=== PATIENT | female | born 1965 | race Caucasian/White ===

== ENCOUNTER 2016-11-07 23:35 | Observation (INO) | payer OTHER ==
[~2016-11-07] VITALS: Ht 165.1 cm; Wt 84.5 kg
--- NOTE | ~2016-11-07 | ECHO ---
Transthoracic Echocardiography Report (TTE) Demographics Patient Name ROBBIE LÓPEZ Date of Study 11/08/2016 Patient Number [id number] Visit Number [id number] Date of 1965 Room Number G6324 Gender Female Number Age 50 year(s) Referring Rosmery Waters Senior Loan Processor Freda RVT, RDCS Physician ROC Davis Physician Interpreting Efstratiou Panayotis A Panel Machine Operator Physician Supervising Ordering Efstratiou Panayotis A MD/MLP Physician MD Nurse Stress Title I Teacher Conclusions Contractility Score Summary Normal Left Ventricular contractility was noted. Summary The estimated left ventricular ejection fraction is 50%. Mild to moderate concentric left ventricular hypertrophy. Diastolic assessment reveals Grade I diastolic dysfunction. The right atrium is mildly dilated. Mild mitral regurgitation by color Doppler Mildly dilated right ventricle. Procedure Type of Study TTE procedure:2D Echocardiogram, M-Mode, Doppler , Color Doppler. Procedure Date Date: 11/08/2016 Start: 12:12 PM Study Location: Inpatient Portable Technical Quality: Adequate visualization Indications:Unstable angina. Appropriate Use Criteria: 9 Patient Status: Routine HR: 84 bpm BP: 123/63 mmHg M-Mode/2D Measurements LV Diastolic Dimension: 4.35 cm LV Systolic Dimension: 3.13 cm LV Septum Diastolic: 1.56 cm LV PW Diastolic: 1.26 cm AO Root Dimension: 2.8 cm Cardiac Output: 4.02 l/min AV Cusp Separation: 1.8 cm RV Diastolic Dimension: 2.5 cm LA volume: 21 ml LVOT: 1.8 cm RV Base: 2.4 cm LVOT VTI: 18.8 cm RV Mid: 2.98 cm LV Stroke volume: 47.82 ml TAPSE: 2.71 cm TDI-S': 12.2 cm/s Doppler Measurements AV Peak Velocity: 1.25 m/s MV Peak E-Wave: 0.6 m/s AV Peak Gradient: 6.25 mmHg MV Peak A-Wave: 1.02 m/s AV Mean Gradient: 4 mmHg MV E/A Ratio: 0.59 LVOT Peak Velocity: 0.9 m/s MV P1/2t: 53 msec TR Gradient:13.25 mmHg PV Peak Velocity: 0.7 m/s Estimated RAP:3 mmHg PV Peak Gradient: 1.95 mmHg Estimated RVSP: 16 mmHg Estimated PASP: 16.25 mmHg E' Septal Velocity: 0.06 m/s A' Septal Velocity: 0.13 m/s E' Lateral Velocity: 0.05 m/s A' Lateral Velocity: 0.15 m/s Findings Left Ventricle Mild to moderate concentric left ventricular hypertrophy. Diastolic assessment reveals Grade I diastolic dysfunction. Right Ventricle Mildly dilated right ventricle. Low normal right ventricular systolic performance. Left Atrium Normal left atrial size. Right Atrium The right atrium is mildly dilated. Mitral Valve Mild mitral regurgitation by color Doppler. Aortic Valve There is trivial aortic regurgitation by color Doppler. Tricuspid Valve Trivial tricuspid regurgitation by color Doppler. Pulmonic Valve Normal pulmonic valve structure and function. Pericardial Effusion Trivial pericardial effusion. Pleural Effusion No evidence of pleural effusion. Contractility Score LV regional wall motion:(0-Non visualized 1-Normal 2-Hypokinesis 3-Akinesis 4-Dyskinesis 5-Aneurysm) Signature dtt: Karley Echavarria dtd: 11/08/16 1212 Physician Self Edit
--- NOTE | ~2016-11-07 | HP ---
PATIENT'S NAME: ROBBIE LÓPEZ [facility] AGE: 50 Y [address] ROOM: [place] [address] LOCATION: GPCU ADMIT DATE: 11/08/2016 History & Physical DISCHARGE DATE: FAMILY PHYSICIAN: PHYSICIAN, NO ATTENDING PHYSICIAN: Angi SALAZAR DATE OF SERVICE: CHIEF COMPLAINT: Chest pain. HISTORY OF PRESENT ILLNESS: The patient is a 50-year-old female with no known history of coronary artery disease, obstructive sleep apnea, diabetes mellitus type 2, and strong family history of coronary artery disease, who presents here with chest pain. The patient reports that around 6:30 p.m., she started feeling left-sided chest pain. However, she reports that chest pain got worse as the day went through. The patient was at work when she started to experience worsening of chest pain. She reports the chest pain as pressure like radiating to the jaw and her left upper extremity and rated the pain 8/10. Quality of chest pain is pressure-like. Also chest pain was associated with shortness of breath and diaphoresis. The patient also reports of some pleuritic chest pain associated with chest pain. The patient reports that chest pain was constant without elevating and exacerbating factor. The patient reports that she has had similar episode around last year and was taken to [place] and had a coronary angiogram. She reports that she had a disease of arteries, which she claimed was 70%. No intervention was made. Upon further investigation, she was unable to answer further followup questions. MEDICAL HISTORY: 1. Diabetes mellitus type 2. 2. CAD. 3. Obstructive sleep apnea. 4. Diabetic polyneuropathy. SURGICAL HISTORY: 1. Back surgery. 2. Hysterectomy. 3. Appendicectomy. 4. Cholecystectomy. FAMILY HISTORY: Mom had history of coronary artery disease in her early 60s. Dad from [facility] 50 Y [address] ROOM: [place] [address] LOCATION: GPCU ADMIT DATE: 11/08/2016 History & Physical DISCHARGE DATE: FAMILY PHYSICIAN: PHYSICIAN, NO ATTENDING PHYSICIAN: Angi SALAZAR heart attack in his 50s. Sister also has a history of coronary artery disease with bypass. SOCIAL HISTORY: The patient is . Does not have kid. 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 She denies of smoking. She reports occasional drink of wine. MEDICATIONS: Currently being reconciled. REVIEW OF SYSTEMS: All systems have been reviewed and are negative except for what I mentioned in the HPI. PHYSICAL EXAMINATION: VITAL SIGNS: Afebrile, blood pressure 136/67, pulse of 99, respiratory rate of 20, and saturating 97% on room air. GENERAL APPEARANCE: The patient is alert and awake, in no acute distress, lying on the bed. HEAD: Normocephalic, atraumatic. EYES: Extraocular muscle intact. NOSE: No nasal discharge. MOUTH: Moist oral mucosa. CHEST: Clear to auscultation bilaterally. HEART: Regular rate and rhythm. No murmurs, rubs, or gallops heard. NECK: No JVD. No pitting edema. ABDOMEN: Soft, nontender, and nondistended. Bowel sounds present. MUSCULOSKELETAL: Range of motion intact. No obvious joint effusion noted. TERADATA SOLUTION ARCHITECT: The patient is alert and oriented x3. Motor and sensory grossly intact. SKIN: Warm to touch. LABORATORY DATA: Troponin x1 negative. White blood cell 6.7, hemoglobin 14.3, and platelet of 217. Blood glucose of 403, BUN of 15, creatinine of 1.2, potassium of 4.2, CO2 of 23. INR of 0.94. EKG shows right bundle-branch block with no obvious ischemic changes. ASSESSMENT AND PLAN: 1. Unstable angina. The patient is with a known history of coronary artery disease without intervention, who presents here with somewhat typical PATIENT'S NAME: ROBBIE LÓPEZ [facility] AGE: 50 Y [address] ROOM: [id number] [place] [id number] [facility] AD[facility] DATE: 11/08/2016 History & Physical DISCHARGE DATE: FAMILY PHYSICIAN: PHYSICIAN, NO ATTENDING PHYSICIAN: Angi SALAZAR chest pain in constant nature. The patient received full dose aspirin via EMS. We will continue aspirin 81 mg. The patient is tachycardic. We will start beta-linda, Lopressor 25 mg b.i.d. Also start heparin drip. We will keep the patient n.p.o. sips with medications. Repeat cardiac enzymes and acquire a cardiology consult in the morning. 2. Acute kidney injury. The patient with baseline creatinine of 0.7, who presents here with creatinine of 1.2. Etiology most likely secondary to uncontrolled diabetes mellitus type 2. We will give the patient L bolus and start 100 mL an hour IV fluid. We will check CMS in the morning. 3. Diabetes mellitus type 2, uncontrolled. The patient is on Lantus 70 units b.i.d. We will change that to 50 units b.i.d. as the patient is n.p.o. We will change back to home regiment when the patient is not n.p.o. anymore. We will also add sliding scale. 4. Diabetic neuropathy. Continue medication. 5. Obstructive sleep apnea. Continue CPAP during stay. Greater than 35 minutes was spent on patient care. Assessment and plan was discussed with the patient. The patient's question was answered with satisfaction. We will admit the patient as an inpatient for unstable angina. MD MARISELA QUINTERO/samantha /[id number] D: T: 821 HISTORY & PHYSICAL
--- NOTE | ~2016-11-07 | CON ---
PATIENT'S NAME: ROBBIE LÓPEZ [facility] AGE: 50 Y [address] ROOM: [address] [place], [place] [address] LOCATION: GPCU ADMIT DATE: 11/08/2016 Consultation DISCHARGE DATE: FAMILY PHYSICIAN: Riley Botello ATTENDING PHYSICIAN: Angi SALAZAR DATE OF CONSULTATION: 11/08/2016 REFERRING PHYSICIAN: Luis Miguel Bingham MD HISTORY OF PRESENT ILLNESS: This is a 50-year-old woman admitted with chest pain whom I am asked to see in consultation. The patient says that the pain has been going on for several days, but became particularly severe yesterday. She also experienced severe dyspnea on exertion. So, she came to the hospital. Evaluation showed that there was no ST depression or elevation. Troponins were negative, and D-dimer was normal. She was placed on heparin and overnight did well. She actually asks today to be discharged home. She describes the pain as being precordial with radiation down the left arm with numbness of forefingers as well as radiation to the back. It was not relieved with nitroglycerin. It is not worse with physical exertion. There is no history of syncope, presyncope, or palpitations. PAST MEDICAL HISTORY: 1. She had chest pain about a year ago. She was evaluated in [place], and then she has had coronary angiogram at [place] in [place]. We have the report that indicates 2 areas of 20% stenosis of the proximal and mid LAD, ejection fraction of 60%, and mildly elevated LVEDP. She also had, around that time, ankle brachial indices which were normal, and carotid ultrasound that showed no significant stenosis. Her echocardiogram showed normal ejection fraction and mild diastolic dysfunction. 2. The patient has diabetes for several years which apparently is very poorly controlled because she often has glucose measurements in the 300 range. She tells me that she was recently hospitalized in [place] with hyperglycemia and some mental status changes. She tells me that the police went to her house and brought her medications because they suspected a suicide attempt, although the patient denies any intent to harm herself. She admits that she is depressed, and the trigger was the loss of her mother 3 years ago. REVIEW OF SYSTEMS: She says she lost 60 to 70 pounds. The weight recorded about a year ago is not significantly different from her weight during this admission. Review of systems also shows that she has indigestion and says her eruptions smell of sulfur dioxide. She is not aware of a diagnosis of gastroparesis. She has been told that she has polyneuropathy. She also has obstructive sleep apnea. PATIENT'S NAME: ROBBIE LÓPEZ [facility] AGE: 50 Y [address] [place] [facility] [place] [address] LOCATION: GPCU ADMIT DATE: 11/08/2016 Consultation DISCHARGE DATE: FAMILY PHYSICIAN: Riley Botello ATTENDING PHYSICIAN: Angi SALAZAR Remaining systems are negative. PAST SURGICAL HISTORY: She mentions 9 back surgeries, appendectomy, cholecystectomy, and hysterectomy. FAMILY HISTORY: Her mother had CABG in her 70s and at age 81. Her father from myocardial infarction at 58 and also had coronary artery disease. One aunt had Alzheimer's. 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 Walks on the job, but does not formally exercise. She does not use tobacco, alcohol, or illegal drugs. PHYSICAL EXAMINATION: GENERAL: A pleasant, middle-aged woman. She is 5 feet 5 inches and weighs 83.5 kg. She is alert and oriented. VITAL SIGNS: Blood pressure 114/66, pulse 91, and temperature 98.4. SKIN: Warm and dry. HEAD: Normocephalic and atraumatic. She is edentulous. NECK: Supple. There are no carotid bruits. No jugular venous distention. No thyromegaly. LUNGS: Clear to auscultation. HEART: Regular with a fourth heart sound. ABDOMEN: Obese and nontender. LOWER EXTREMITIES: No peripheral edema, 2+ dorsalis pedis pulses. DIAGNOSTIC STUDIES: Sinus rhythm, right bundle-branch block, nonspecific T changes. Complete metabolic screen: Glucose is 260 this morning, BUN 14, and creatinine 0.8. CK-MB less than 0.5. Troponin I less than 0.04 on 3 samples. Initial GFR was 52, but improved with hydration. Hemoglobin A1c is 13.5%. IMPRESSION: 1. Atypical chest pain. I doubt that her coronary artery disease, even badly controlled, progressed that much in one year. The pain could be from microvascular dysfunction because of her uncontrolled diabetes and probably untreated dyslipidemia. 2. Poorly controlled diabetes. 3. Neuropathy. 4. Possible gastroparesis. 5. Obesity. 6. Obstructive sleep apnea. PATIENT'S NAME: ROBBIE LÓPEZ [facility] AGE: 50 Y [address] ROOM: [place] [address] [facility] ADMIT DATE: 11/08/2016 Consultation DISCHARGE DATE: FAMILY PHYSICIAN: Riley Botello ATTENDING PHYSICIAN: Angi SALAZAR PLAN: I will measure a proBNP and lipid panel. I will stop the heparin, stopping metoprolol. Start the patient on carvedilol 6.25 twice a day, atorvastatin 40. Continue the aspirin. Her outpatient medications which I did not mention are citalopram 40 mg daily, clonazepam 0.5 mg at bedtime, aspirin 81 mg daily, multivitamin once a day, cyclobenzaprine. 10 mg 3 times a day as needed, insulin glargine 70 units, and insulin aspart per sliding scale. I will repeat her echocardiogram. The patient needs to have better control of her diabetes. Thank you for allowing me to participate in the care of your patient. LUIS MIGUEL BINGHAM MD PE/samantha /[id number] d: 11/08/16 1403 t: 11/09/16 1714, CONSULTATION REPORT
--- NOTE | ~2016-11-07 | DS ---
PATIENT'S NAME: ROBBIE LÓPEZ [facility] AGE: 50 Y [address] ROOM: G6324 [place], [place] [address] LOCATION: GPCU ADMIT DATE: 11/08/2016 Discharge Summary DISCHARGE DATE: 11/10/2016 FAMILY PHYSICIAN: Riley Botello ATTENDING PHYSICIAN: Angi Lowe DISCHARGE DIAGNOSES: 1. Chest pain, musculoskeletal. 2. Dysphagia. 3. Diabetes mellitus, type 2, poorly-controlled. 4. Constipation. 5. Acute kidney injury, resolved. 6. Diabetic neuropathy. 7. Obstructive sleep apnea, CPAP. HOSPITAL COURSE: Please refer to admitting history and physical as dictated by Dr. Lowe. Briefly, the patient was admitted to [facility] with a diagnosis of unstable angina. She was started on IV fluids. Cardiac enzymes were obtained, which were all within normal limits. Cardiology consult was obtained. She was started on a heparin drip per protocol. Insulin was managed per sliding scale insulin as well as her long-acting Levemir, which was increased to 50 units subcu twice daily. Cardiology felt as though she could have probable microvascular dysfunction. She was started on Coreg, which was increased to 12.5 mg p.o. daily. She was started on atorvastatin 40 mg p.o. daily. She was found to have a total cholesterol of 286, triglycerides 1129, HDL 35. Pro-BNP was less than 30. She was also started on Lovaza 2 g p.o. b.i.d. All of her troponins were negative. D- dimer was negative. Diabetic Ed followed the patient throughout her stay. Her hemoglobin A1c was found to be 13.5. The patient also stated she had difficulty swallowing. Esophagram showed mildly disordered esophageal motility, no difficulty initiating swallow, and no structural abnormalities. A modified barium swallow was subsequently obtained, which showed no aspiration or penetration with thin liquid barium, nectar, applesauce, mixed fruits, or pudding. It was recommended that she continue speech therapy as an outpatient. The patient had constipation and she was started on MiraLAX p.o. daily. Her dysphagia is likely secondary to oropharyngeal versus esophageal dysmotility. It was felt as though she may benefit from an outpatient gastric emptying study as gastroparesis could likely be present, secondary to her poorly-controlled diabetes mellitus. We will let the patient followup with her primary care provider for further determinations of gastric emptying study. On the day of discharge, the patient's vital signs were stable, she still had minor chest discomfort, which did increase with palpation of her chest. Blood sugars were 190 fasting. She did have a bowel movement. She did have acute kidney injury upon admit and prior to discharge this had subsequently resolved. On 11/10/2016, it was felt as though she was stable to PATIENT'S NAME: ROBBIE LÓPEZ [facility] AGE: 50 Y [address] ROOM: [address] [place], [place] [address] LOCATION: GPCU ADMIT DATE: 11/08/2016 Discharge Summary DISCHARGE DATE: 11/10/2016 FAMILY PHYSICIAN: Riley Botello ATTENDING PHYSICIAN: Angi Lowe be discharged home and follow up with Jl Botello in 3 days. LABORATORY DATA: Sodium remained within normal limits, potassium 4.2, calcium 8.9, BUN 14 to 15, creatinine 0.7 to 1.2, alk phos 88, AST 17, ALT 29, GFR 52 on admit, greater than 90 prior to discharge, total cholesterol 286, triglycerides 1129, HDL 35, CK-MB less than 0.5, troponin after 5 sets all remained less than 0.040. Hemoglobin A1c 13.5. WBC 6.7, hematocrit 39.6, hemoglobin 14.3, and platelets 217. Echocardiogram showed an EF of 50%, grade 1 diastolic dysfunction, right atrium mildly dilated, mild mitral regurg, and mildly dilated right ventricle. DISCHARGE INSTRUCTIONS: 1. The patient will be discharged to home. 2. Diet: Diabetic. 3. Activity: As tolerated. 4. Followup appointment with Jl Botello in 3 days. 5. [facility] diet[facility] in 2 weeks. 6. Record blood sugars and blood pressures and take to appointment with primary care provider. DISCHARGE MEDICATIONS: 1. Aspirin 81 mg p.o. daily. 2. Lipitor 40 mg p.o. daily. 3. Coreg 12.5 mg p.o. twice daily. 4. Celexa 40 mg p.o. daily. 5. Klonopin 0.5 mg p.o. q.h.s. 6. Home insulin sliding scale. 7. Lantus 50 units subcu twice daily. 8. Fish oil 2000 mg p.o. twice daily. 9. Protonix 40 mg p.o. daily. 10. MiraLAX 17 g p.o. daily. 11. Tylenol 650 mg p.o. every 6 hours as needed for pain. 12. Flexeril 10 mg p.o. t.i.d. 13. Multivitamin 1 tablet p.o. daily. Thank you for allowing us to participate in the care of this patient as she has been hospitalized at [facility]. DAVID BENNETT APRN FOR MD CACHORRO TONEY/samantha PATIENT'S NAME: ROBBIE LÓPEZ [facility] AGE: 50 Y [address] ROOM: [place] [address] [facility] AD[facility] DATE: 11/08/2016 Discharge Summary DISCHARGE DATE: 11/10/2016 FAMILY PHYSICIAN: Riley Botello ATTENDING PHYSICIAN: Angi Lowe /[id number] d: 11/11/16 0203 t: 11/13/16 1434, DISCHARGE SUMMARY
--- NOTE | ~2016-11-07 | CON ---
PATIENT'S NAME: ROBBIE LÓPEZ [facility] AGE: 50 Y [address] ROOM: [place] [address] LOCATION: GPCU ADMIT DATE: 11/08/2016 Consultation DISCHARGE DATE: FAMILY PHYSICIAN: Riley Botello ATTENDING PHYSICIAN: Angi SALAZAR DATE OF CONSULTATION: 11/09/2016 REFERRING PHYSICIAN: Karley Echavarria MD REASON FOR CONSULTATION: Dysphagia. HISTORY OF PRESENT ILLNESS: This is a very pleasant 50-year-old female with known coronary artery disease, obstructive sleep apnea, diabetes mellitus type 2. The patient presented to [facility] with chest pain. She states at that time, it was located on the left side of the chest as it progressively worsened throughout the day. She was evaluated per Cardiology and thought this was atypical chest pain, not due to coronary artery disease. We were asked to see in consultation as the patient continued with complaints of longstanding dysphagia. The patient was seen and examined. She does state that she has had a long- standing history of dysphagia as well as known esophageal stricture dilated at her previous endoscopy last year. She does state that she has dysphagia to specifically solids or liquids. She did also undergo upper endoscopy and colonoscopy completed in [place], as these records will be requested to be sent to us. The patient denies any acute chest pain, chest pressure, shortness of breath, fever, or chills. PAST MEDICAL HISTORY: Diabetes mellitus type 2, CAD, obstructive sleep apnea, diabetic polyneuropathy. PAST SURGICAL HISTORY: Back surgery, hysterectomy, appendectomy, cholecystectomy, upper endoscopy, and colonoscopy in [place] approximately a year ago. FAMILY HISTORY: The patient's mother had coronary artery disease. The patient's father had heart attack in his 50s. The patient's sister also has coronary artery disease with bypass. She denies any known gastrointestinal diseases. SOCIAL HISTORY: The patient is . She does not have any kids. 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 ROOM: [place] [address] LOCATION: GPCU ADMIT DATE: 11/08/2016 Consultation DISCHARGE DATE: FAMILY PHYSICIAN: Riley Botello ATTENDING PHYSICIAN: Angi SALAZAR intellectually disabled kids. Denies any smoking. She does admit to occasional drink of wine. ALLERGIES: PENICILLIN, NIACIN, MORPHINE, CODEINE, TRIAMCINOLONE, ERYTHROMYCIN BASE, CLARITHROMYCIN, GABAPENTIN, CEFTRIAXONE, VANCOMYCIN, LEVOFLOXACIN, AND LATEX. CURRENT MEDICATIONS: Please refer to the medication administration record. REVIEW OF SYSTEMS: All-point review of systems was completed. All were negative except for those identified in the history of present illness. PHYSICAL EXAMINATION: GENERAL: A pleasant 50-year-old female, lying in bed, who appears to be in no acute distress. VITAL SIGNS: Temperature 98.3, pulse of 80, respirations 16, blood pressure 133/76, and oxygen saturation is 96% on room air. SKIN: Colon, warm, dry. No jaundice. HEENT: Head is normocephalic and atraumatic. Pupils are equal, round, and reactive to light. Sclerae are clear and nonicteric. Oral mucosa is pink and moist. No thyromegaly. NECK: Soft and supple. CARDIOVASCULAR: Regular. Normal S1, S2. RESPIRATORY: Respirations are even and unlabored. LUNGS: Clear to auscultation. ABDOMEN: Soft, round, nontender, and nondistended. Bowel sounds are positive x4 quadrants. MUSCULOSKELETAL: No muscle weakness or atrophy. EXTREMITIES: No clubbing, cyanosis, or edema. NEUROLOGIC: Grossly nonfocal. LABORATORY DATA AND DIAGNOSTICS: Chemistry panel includes a glucose of 235, BUN of 14, creatinine is 0.7. Sodium 140, potassium of 4.0, chloride of 108, CO2 of 24. Liver function tests are within normal limits. CBC includes white blood cell count of 6.7, hemoglobin of 14.3, hematocrit of 39.6, and platelets of 217. Cardiac enzymes have all been within normal limits. On admission, pro-time was 9.9, INR was 0.94, PTT of 22. ASSESSMENT AND PLAN: Again, this is a very pleasant, 50-year-old female, who was admitted with acute atypical chest pain, noncardiac related. We were asked to see in consultation for dysphagia, as well as possible motility issues. The patient PATIENT'S NAME: ROBBIE LÓPEZ [facility] AGE: 50 Y [address] ROOM: [address] [address] LOCATION: [facility] ADMIT DATE: 11/08/2016 Consultation DISCHARGE DATE: FAMILY PHYSICIAN: Riley Botello ATTENDING PHYSICIAN: Angi SALAZAR recently underwent an upper endoscopy as well. We will request for these records to be sent to us. The patient will also undergo a modified barium swallow and esophagram to rule out achalasia. The patient does complain of some constipation. The patient was recently started on MiraLAX as well as given milk of magnesia for hopeful relief of the patient's constipation. Further recommendations will be given status post modified barium swallow and esophagram. Thank you for this consult. MICHAEL JANE APRN FOR MD DAYNE BLOCK/samantha /[id number] d: 11/10/16821 t: 11/14/16 0741, CONSULTATION REPORT
--- NOTE | ~2016-11-07 | ER ---
PATIENT'S NAME: ROBBIE LÓPEZ [facility] AGE: 50 Y [address] ROOM: [place] [address] LOCATION: GPCU ADMIT DATE: 11/08/2016 ER/Outpatient Report DISCHARGE DATE: FAMILY PHYSICIAN: Riley Botello ATTENDING PHYSICIAN: Angi SALAZAR TIME OF ADMIT: 2335 hours. TIME SEEN: 2355 hours. HISTORY OF PRESENT ILLNESS: This is a 50-year-old female. She was previously reasonably healthy. She is in with complaint of chest pain and back pain. She describes it as a pressure- type pain. It began while she was driving to work several hours ago. It has been continuous since its onset. She arrived here by ambulance. She was given one sublingual nitroglycerin en route, which caused a headache, but did not improve her chest pain. PAST MEDICAL HISTORY: Significant for sleep apnea and insulin-dependent diabetes. CURRENT MEDICATIONS: Please see list. REVIEW OF SYSTEMS: Otherwise negative. SOCIAL HISTORY: She is a nonsmoker. PHYSICAL EXAMINATION: GENERAL: An alert, anxious-appearing female, in no acute distress. She appeared to be quite uncomfortable. SKIN: Warm and dry. Color was normal. HEAD, EARS, EYES, NOSE, AND THROAT: Normal. NECK: Supple. HEART: Regular rate and rhythm. There is no murmur. LUNGS: Clear. Breath sounds are equal. ABDOMEN: Soft and nontender. EXTREMITIES: Normal. NEUROLOGIC: Normal. EKG: PATIENT'S NAME: ROBBIE LÓPEZ [facility] AGE: 50 Y [address] ROOM: [place] [address] LOCATION: GPCU ADMIT DATE: 11/08/2016 ER/Outpatient Report DISCHARGE DATE: FAMILY PHYSICIAN: Riley Botello ATTENDING PHYSICIAN: Angi SALAZAR EKG revealed a right bundle-branch block with no acute ST or T-wave changes. There is no previous EKG for comparison. LABORATORY DATA AND X-RAYS: CBC and comprehensive metabolic profile was notable for markedly elevated glucose of greater than 400. Cardiac enzymes were negative. Chest x-ray was negative. ASSESSMENT: Chest pain of uncertain etiology. PLAN: Admit for serial enzymes. Cath report from heart cath performed 1 year ago in [place]. MD CLINTON LEMON/modl /[id number] d: 11/08/16724 t: 11/09/16 1754, OUTPATIENT REPORT
[2016-11-08 00:18] LABS: BASOPHIL # 0.1 K/uL (0.0-0.2); BASOPHIL % 0.9 %; EOSINOPHIL # 0.2 K/uL (0.0-0.5); HEMATOCRIT 39.6 % (33.0-46.0); HEMOGLOBIN 14.3 g/dL (10.0-15.0); IMMATURE GRANULOCYTE # 0.1 K/uL (0.0-0.3); IMMATURE GRANULOCYTE % 0.7 %; LYMPHOCYTE # 2.7 K/uL (0.8-4.0); LYMPHOCYTE % 40.3 %; MCHC 36.1 gm/dL (32.0-36.5); MCV 83.2 fl (83.0-98.0); MONOCYTE # 0.5 K/uL (0.0-1.0); MONOCYTE % 7.9 %; MPV 9.6 fl (9.4-12.4); NEUTROPHIL # (ANC) 3.1 K/uL (1.8-7.8); NEUTROPHIL % 47.2 %; NRBC % 0 /100WBC (0-0.00); PLATELET COUNT 217 K/uL (150-450); RBC 4.76 M/uL (3.50-5.50); RDW-CV 11.6 % (11.9-14.6); WBC 6.7 K/uL (4.0-11.0)
[2016-11-08 00:25] LABS: INR - (THERAPEUTIC) 0.94 (0.92-1.07); PROTIME 9.9 SECONDS (9.8-11.4); PTT 22 SECONDS (25-32)
[2016-11-08 00:36] LABS: ALBUMIN 3.6 gm/dL (3.5-5.0); ALK PHOS 94 IU/L (33-138); ALT 30 IU/L (12-78); ANION GAP 14.2 (10.0-19.0); AST 20 IU/L (10-40); BLOOD UREA NITROGEN 15 mg/dL (6-24); CALCIUM 8.9 mg/dL (8.5-10.5); CHLORIDE 102 mMol/L (96-110); CO2 23 mMol/L (22-32); CPK 52 IU/L (21-215); CREATININE 1.2 mg/dL (0.5-1.1); POTASSIUM 4.2 mMol/L (3.7-5.1); SODIUM 135 mMol/L (135-145); TOTAL BILIRUBIN 0.5 mg/dL (0.0-1.5); TOTAL PROTEIN 7.4 g/dL (6.0-8.4)
[2016-11-08 02:25] LABS: CPK 50 IU/L (21-215)
[2016-11-08] MEDS ORDERED: CELEXA40 MG PO (02:54)
[2016-11-08] MEDS ORDERED: ASPIRIN LO-DOSE81 MG PO (02:55)
[2016-11-08] MEDS ORDERED: KLONOPIN0.5 MG PO (02:55)
[2016-11-08] MEDS ORDERED: MULTIVITAMINS1 EAC2 PO (02:56)
[2016-11-08] MEDS ORDERED: LANTUS (IN100 UNIT/M SUB-Q (02:58)
[2016-11-08] MEDS ORDERED: FLEXERIL10 MG PO (02:58)
[2016-11-08] MEDS ORDERED: NOVOLOG100 UNIT/M SUB-Q (03:00)
--- NOTE | 2016-11-08 04:23 | NUR ---
Pt arrived at work and began having midsternal chest pain that was radiating to her L) arm along with shortness of breath and nausea. Her co-workers called EMS and she was brought to the ER. EKG, enzymes and CT per PE protocol were all negative. BG was 400 at the time. Pt admitted for observation, cardiology consulted.
--- NOTE | 2016-11-08 05:04 | NUR ---
Significant events: Pt A/Ox3. VSS, on RA. Up SBA. Heparin gtt initiated at 1000/hr with a 3000unit bolus. NS at 100cc/hr. C/O chest pain which radiates to the L) arm and a headache. Tylenol and dilaudid given. Pt received 1L NS bolus. Cardiology to see this AM. NPO.
[2016-11-08 07:55] LABS: CPK 90 IU/L (21-215)
[2016-11-08 07:59] LABS: ALBUMIN 3.2 gm/dL (3.5-5.0); CALCIUM 7.5 mg/dL (8.5-10.5); CREATININE 0.8 mg/dL (0.5-1.1); TOTAL BILIRUBIN 0.4 mg/dL (0.0-1.5)
[2016-11-08 08:19] LABS: TOTAL PROTEIN 6.7 g/dL (6.0-8.4)
--- NOTE | 2016-11-08 11:14 | NUR ---
Diabetes consult: Patient with poorly controlled diabetes and A1C of 13.5%. The patient reports having diabetes since 2005. Her primary provider is Dr. Botello in [facility] and reports having had diabetes education with CDE and dietitian in [place] in the past. The patient has an inconsistent schedule and works 11pm. to 7am at [employer], 5 days a week . She states she is used to eating one meal a day and checks her blood sugars "when she feels like it". She reports that her last blood sugars readings have read "high" on the glucometer. She reports taking her Lantus at consistent time of 9 a.m. and 9. p.m but fluctuates the dose between 50-70 units. She does indicate that occassionally she will take her Novolog correction. Currently, she has been experiencing epigastric pain when eating and feeling "full". The patient does have a history of peripheraly neuropathy and may have developed gastroparesis. Currently her total cholesterol is 286; Triglycerides 1129 and HDL 35. The patient reports being related to the dietitican in [place] and not wanting to see her again. The patient is willing to meet with the outpatient dietitian [facility]. The patient was provided with education regarding the action time and dosing of insulins. She was encouraged to keep her Lantus at a set dose and use her Novolog for correction. She was encouraged to eat small frequent meals and dose her Novolog at least three times per day. Recommendations: 1. Patient is nonadherent to checking blood sugars and dosing Novolog correction. She may benefit from a set Novolog prandial dose. 2. Schedule to meet with [facility], outpatient dietitian at time of discharge. 3. Schedule to follow up with CDE in [facility] in one week. Will have CDE check on patient in the morning and reevaluate blood sugars.
--- NOTE | 2016-11-08 14:01 | NUR ---
Introduced self and care management services to patient. Lives in [place] with spouse, works at [employer]. Plans on going home on discharge, denies concerns about going home, denies needs. Is independent. [employer] will follow and assist with dc planning as needs identified.
[2016-11-08 14:07] LABS: CPK 55 IU/L (21-215)
--- NOTE | 2016-11-08 17:13 | NUR ---
Significant Event: VSS ON RA. COREG INITIATED TODAY. ECHO COMPLETED AT BEDSIDE. FISH OIL AND LIPITOR ALSO STARTED FOR TRIGLYCERIDES 1100 AND CHOLESTEROL >300. TYLENOL GIVEN THIS AFTERNOON AROUND 1400 FOR PAIN TO LEGS, CHEST AND ARMS. PATIENT RESTED COMFORTABLY THIS AFTERNOON. PIV TO R) HAND/WRIST SL'D. 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 SBA TO BATHROOM. Follow up: HOME TOMORROW. CONT TO MONITOR.
[2016-11-08 20:16] LABS: CPK 52 IU/L (21-215)
[2016-11-09 03:39] LABS: ALBUMIN 3.2 gm/dL (3.5-5.0); ALK PHOS 87 IU/L (33-138); ALT 31 IU/L (12-78); AST 19 IU/L (10-40); BLOOD UREA NITROGEN 14 mg/dL (6-24); CALCIUM 8.3 mg/dL (8.5-10.5); CHLORIDE 108 mMol/L (96-110); CO2 24 mMol/L (22-32); CREATININE 0.7 mg/dL (0.5-1.1); SODIUM 140 mMol/L (135-145); TOTAL PROTEIN 6.8 g/dL (6.0-8.4)
[2016-11-09 03:40] LABS: TOTAL BILIRUBIN 0.3 mg/dL (0.0-1.5)
--- NOTE | 2016-11-09 05:46 | NUR ---
Significant Event:A/Ox3. VSS on RA and home Cpap. Only c/o PIERSON and some shoulder pain. Tylenol given with HS medicaitons. Patient rested well all night. PIV to R)hand saline locked. SBA with transfers. Follow up:Discharge to home.
--- NOTE | 2016-11-09 19:30 | NUR ---
Significant Event:Patient had espogram today, will have MBS tomorrow. Started on Miralax today, and given MOM. reports hard BM this am. C/o some difficulty with swallowing and feeling full. Follow up:Continue to monitor
--- NOTE | 2016-11-10 06:02 | NUR ---
Significant Event: DENIES PAIN ALL NIGHT. SLEEPING WELL WITH CPAP. VSS. STILL HAVING SLIGHT PROBLEMS WITH SWALLOWING. UP AD MARITA TO BR. Follow up:
[2016-11-10 06:10] LABS: ALBUMIN 3.5 gm/dL (3.5-5.0); ALK PHOS 88 IU/L (33-138); ALT 29 IU/L (12-78); ANION GAP 9.2 (10.0-19.0); AST 17 IU/L (10-40); BLOOD UREA NITROGEN 15 mg/dL (6-24); CALCIUM 8.9 mg/dL (8.5-10.5); CHLORIDE 107 mMol/L (96-110); CO2 27 mMol/L (22-32); CREATININE 0.7 mg/dL (0.5-1.1); POTASSIUM 4.2 mMol/L (3.7-5.1); SODIUM 139 mMol/L (135-145); TOTAL PROTEIN 7.1 g/dL (6.0-8.4)
[2016-11-10 06:13] LABS: TOTAL BILIRUBIN 0.5 mg/dL (0.0-1.5)
--- NOTE | 2016-11-10 15:58 | NUR ---
Significant Event: pt up in roomm self. Modified done this am. Pt slept some today. Pt to go home this afternoon. Follow up:
[2016-11-10] MEDS ORDERED: COREG12.5 MG PO (16:14)
[2016-11-10] MEDS ORDERED: FISH OIL DR 1,1 EAC1 PO (16:15)
[2016-11-10] MEDS ORDERED: MIRALAX17 GM PO (16:17)
[2016-11-10] MEDS ORDERED: PROTONIX40 MG PO (16:17)
[2016-11-10] MEDS ORDERED: TYLENOL325 MG PO (16:30)
[2016-11-10] MEDS ORDERED: LIPITOR40 MG (16:44)
--- NOTE | 2016-11-10 17:34 | NUR ---
d-dr mcintosh dc i-nurse did teaching on all meds with new ones explained, rx given, appts set up for pt, pt to check bg and record them, pt took her cpap and stuff in vault, pt refuse bg before left, iv dcd intact, r-pt has no questions and has it down p-ta took pt out per wc
== END 2016-11-10 17:52 | disposition disaster alternative care site (69) ==
LOC: GMED 23:35 → GPCU 11-08 01:03
PROVIDERS: Emergency Medicine; ADMIT Internal Medicine
DX: R07.89 Other chest pain (principal); R13.10 Dysphagia, unspecified; E11.65 Type 2 diabetes mellitus with hyperglycemia; K59.00 Constipation, unspecified; N17.9 Acute kidney failure, unspecified; E11.40 Type 2 diabetes mellitus with diabetic neuropathy, unspecified; I25.110 Atherosclerotic heart disease of native coronary artery with unstable angina pectoris; G47.33 Obstructive sleep apnea (adult) (pediatric); Z99.89 Dependence on other enabling machines and devices; Z79.82 Long term (current) use of aspirin; Z79.899 Other long term (current) drug therapy; Z90.49 Acquired absence of other specified parts of digestive tract; Z90.710 Acquired absence of both cervix and uterus
CPT/HCPCS: G0378; J1170; J1644; J7030

== ENCOUNTER → 2016-11-07 | Outpatient (CLI) | payer BC ==
[~2016-11-07] MED LIST: ASPIRIN LO-DOSE81 MG PO; CELEXA40 MG PO; COREG12.5 MG PO; FISH OIL DR 1,1 EAC1 PO; FLEXERIL10 MG PO; KLONOPIN0.5 MG PO; LANTUS (IN100 UNIT/M SUB-Q; LIPITOR40 MG; MIRALAX17 GM PO; MULTIVITAMINS1 EAC2 PO; NOVOLOG100 UNIT/M SUB-Q; PROTONIX40 MG PO; TYLENOL325 MG PO
== END | disposition disaster alternative care site (69) ==
LOC: GAMB 23:15
DX: R07.9 Chest pain, unspecified (principal); E11.9 Type 2 diabetes mellitus without complications; R11.0 Nausea; R51 Headache; Z88.0 Allergy status to penicillin; Z88.5 Allergy status to narcotic agent; Z88.1 Allergy status to other antibiotic agents
CPT/HCPCS: J2405; J7030